=== PATIENT | male | born 1995 | race Hispanic/Latino ===

== ENCOUNTER 2017-05-21 12:32 | Emergency (ER) | payer OTHER ==
[2017-05-21 12:40] VITALS: BP 132/84; PULSE 89; RESP 19; TEMP 98; O2SAT 98
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
== END 2017-05-21 14:08 | disposition home or self-care (01) ==
LOC: C.ER 12:32
DX: S39.012A Strain of muscle, fascia and tendon of lower back, initial encounter (principal); X50.9XXA Other and unspecified overexertion or strenuous movements or postures, initial encounter; Y93.89 Activity, other specified; Y92.238 Other place in hospital as the place of occurrence of the external cause; Y99.0 Civilian activity done for income or pay

== ENCOUNTER 2018-03-13 21:54 | Emergency (ER) | payer OTHER ==
[2018-03-13 22:07] VITALS: BP 117/75; PULSE 88; RESP 20; TEMP 98.4; O2SAT 98
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
--- NOTE | 2018-03-14 12:46 | RAD ---
Date of service: 03/13/2018 PROCEDURE: Cervical Spine Radiographs. HISTORY: Pain. COMPARISON: None. FINDINGS: BONES: There is normal alignment of the cervical vertebral bodies. There is straightening of the cervical spine. Vertebral height is normal. Bone mineralization is normal. There is no acute fracture or traumatic anterior listhesis. The craniocervical junction is normal. The atlantoaxial joint normal. DISC SPACES: Normal. SOFT TISSUES: Normal. No prevertebral soft tissue swelling. OTHER FINDINGS: None. IMPRESSION: No acute fracture or traumatic anterior listhesis. Straightening of the cervical spine may be positional or related to muscle spasm.
--- NOTE | 2018-03-14 12:47 | RAD ---
Date of service: 03/13/2018 PROCEDURE: Left Knee Radiographs. HISTORY: Pain. COMPARISON: None. FINDINGS: BONES: Bone alignment and mineralization are normal. There is no acute displaced fracture or bone destruction. JOINTS: Normal. JOINT EFFUSION: There is a small suprapatellar joint effusion. OTHER FINDINGS: None. IMPRESSION: No acute fracture or dislocation. Small suprapatellar joint effusion.
== END 2018-03-13 23:36 | disposition home or self-care (01) ==
LOC: C.ER 21:54
DX: S16.1XXA Strain of muscle, fascia and tendon at neck level, initial encounter (principal); V43.52XA Car driver injured in collision with other type car in traffic accident, initial encounter

== ENCOUNTER 2018-09-12 07:32 | Outpatient (CLI) | payer OTHER | END 2018-09-12 07:33 | disposition home or self-care (01) | LOC: C.CTH 07:32 ==